=== PATIENT | female | born 1980 | race Caucasian/White ===

== ENCOUNTER → 2016-09-10 | Outpatient (CLI) | payer OTHER ==
[~2016-09-10] MED LIST: ALLEGRA60 MG PO; BACTRIM DS TABL1 TA1 PO; EXCEDRIN EXTRA1 TAB; EXCEDRIN GELTAB1 TA1 PO; FIORICET1 TAB PO; FLEXERIL10 MG PO; IBUPROFEN PO; IBUPROFEN800 MG PO; LOC PO; LORTAB 7.5-3251 EACH PO; MEDROL4 MG/DOSE- PO; NAPROXEN PO; NO MEDICATIONS; NORCO 7.5-3251 EACH PO; PERCOCET PO; PREDNISONE PO; ROBAXIN 750750 MG PO; TYLENOL #3 PO; VICODIN 5/1 TAB 5/50 PO; VICODIN 5/500 T1 TAB PO; VOLTAREN75 MG PO; ZANAFLEX4 M1 PO
--- NOTE | ~2016-09-10 | MR113 ---
[facility] A Service of [facility] RADIOLOGY TEXT RESULTS PATIENT: ZHAO ARENAS LOCATION: [facility] : [birth year] UNIT #: [id number] AGE: [address]: Stephon Alves MD SEX: F ORDER DR: [id number] [place] [id number] O MR#: [id number] Acc #: [id number] NAME: ZHAO ARENAS : 1980 SEX: F STUDY DATE/TIME: 09/10/2016 14:09 UNIT: [facility] ROOM: STUDY DESCRIPTION: MR Lumbar Wo Contrast Attending Physician: Stephon Alves M.D. Referring Physician: Stephon Alves M.D. Ordering Physician: Stephon Alves M.D. Primary Care Physician: Primary Care Physician No MRI CENTER REPORT This report is preliminary unless electronic signature is present. EXAM MRI of the lumbar spine without HISTORY Herniated lumbar disc. No known injury or surgery. Chronic low back pain for several years worse in the past 6-7 months, worse to the left side into the left hip and buttock area. COMMENTS MRI of the lumbar spine performed without contrast using routine 1.5T wide-bore imaging technique. COMPARISON: Plain films 12/31/2015. Sagittal alignment is normal. There is loss of intervertebral disc height at L5-S1 with mixed marrow endplate degenerative changes, dissociation and endplate spondylosis. Hxpqwcat-tk-jlypwa loss of intervertebral disc height at this level. Conus medullaris terminates at L1 level and is normal. L1-2, no significant abnormality. At L2-3, minor concentric disc bulge. No canal or foraminal impingement. L3-4, no significant abnormality. At L4-5, minor posterior disc bulge. No canal or foraminal impingement. L5-S1, findings as noted above with concentric disc bulge and endplate spondylosis. There is superimposed extrusion central extending to the left and right of midline extending caudad from the disc but remaining [facility] A Service [facility] RADIOLOGY TEXT RESULTS PATIENT: ZHAO ARENAS LOCATION: [facility] : [birth year] UNIT #: [id number] AGE: [address]: Stephon Alves MD SEX: F ORDER DR: contiguous with it. Extrusion is small and there is mild effacement of the anterior thecal sac. There is mild mass effect on the bilateral lateral recesses expected location of the S1 roots. Disc material also extends into the foramina and there is glgt-fa-zrtiaejs left and milder right-side foraminal narrowing. IMPRESSION 1. Lumbar degenerative changes are detailed above most significant appearing radiographically at L5-S1. See above. Dictated by... Alice Weller M.D. THIS IS AN ELECTRONICALLY VERIFIED REPORT Alice Weller M.D. at 09/13/2016 3:25 PM DILIP/cesario TD: 09/13/2016 11:54 JOB #: [id number] MRI CENTER REPORT Page 1 of 1
== END | disposition home or self-care (01) ==
LOC: SMRI 13:08
DX: M51.26 Other intervertebral disc displacement, lumbar region (principal); M47.897 Other spondylosis, lumbosacral region
CPT/HCPCS: 72148

== ENCOUNTER 2016-10-05 23:50 | Emergency (ER) | payer OTHER ==
--- NOTE | ~2016-10-05 | CT16 ---
[facility] A Service [facility] RADIOLOGY TEXT RESULTS PATIENT: ZHAO ARENAS LOCATION: SED : 81 UNIT #: [id number] AGE: [address]: Stephon Moreland MD SEX: F ORDER DR: [id number] [place] [id number] E MR#: [id number] Acc #: [id number] NAME: ZHAO ARENAS : 1980 SEX: F STUDY DATE/TIME: 10/06/2016 1:37 UNIT: SED ROOM: STUDY DESCRIPTION: CT Angio Chest for PE Attending Physician: Stephon Moreland M.D. Ordering Physician: Stephon Moreland M.D. Primary Care Physician: No Primary Care Physician MEDICAL IMAGING REPORT This report is preliminary unless electronic signature is present. EXAM CTA chest PE protocol INDICATION Elevated D-dimer level. Palpitations, shortness of air beginning today. PROCEDURE Contrast-enhanced CTA of the chest attention on opacification of the pulmonary arteries. Coronal 3D MIP sagittal reformatted images reconstructed and submitted. This CT exam was performed with one or more of the following radiation dose reduction techniques: automatic exposure control, adjustment of mA and/or kV according to patient size, and iterative reconstruction. COMPARISON None. FINDINGS No evidence for pulmonary embolus or acute aortic injury. No adenopathy. Nodularity of the inferior thyroid gland. No acute findings in the included upper abdomen. Lungs are clear. No aggressive appearing bone lesion. IMPRESSION 1. No acute findings. No evidence for pulmonary embolus. 2. Nodularity along the inferior aspect of the thyroid gland. Thyroid would be better evaluated with a nonemergent thyroid ultrasound. Dictated by... Sriram Garcia M.D. [facility] A Service [facility] RADIOLOGY TEXT RESULTS PATIENT: ZHAO ARENAS LOCATION: SED : 81 UNIT #: [id number] AGE: [address]: Stephon Moreland MD SEX: F ORDER DR: THIS IS AN ELECTRONICALLY VERIFIED REPORT Sriram Garcia M.D. at 10/06/2016 10:09 PM BEVERLY/macie TD: 10/06/2016 09:43 JOB #: [id number] MEDICAL IMAGING REPORT Page 1 of 1
--- NOTE | ~2016-10-05 | EKG ---
PATIENT: ZHAO ARENAS UNIT #: [id number] Ventricular Rate: 97 BPM Atrial Rate: 97 BPM P-R Interval: 126 ms QRS Duration: 94 ms Q-T Interval: 366 ms QTC Calculation(Bezet): 464 ms P [place]: 69 degrees Calculated R [place]: 46 degrees Calculated T [place]: -37 degrees Diagnosis Line: Normal sinus rhythm Diagnosis Line: ST and T wave abnormality, consider anterolateral Diagnosis Line: ischemia Diagnosis Line: Prolonged QT Diagnosis Line: Abnormal ECG Diagnosis Line: No previous ECGs available Diagnosis Line: Confirmed by JULES MILAN MD ([id number]) on Diagnosis Line: 10/06/2016 2:49:02 PM INTERPRETING MD: BJORN PRESSLEY
[~2016-10-05 23:50] MED LIST changes: -LOC PO; -LORTAB 7.5-3251 EACH PO
[2016-10-06 00:48] LABS: BASOPHIL% 0.2 % (0-2.5); EOSINOPHIL# 0.2 X10e3 (0-0.7); EOSINOPHIL% 3.3 % (0.0-7.0); HEMATOCRIT 36.6 % (35.0-45.0); HEMOGLOBIN 12.4 gm/dL (12.0-16.0); MEAN CELL VOLUME 91.8 FL (83-96); MEAN CORPUSCULAR HEMOGLOBIN 31.1 PG (28-34); MEAN CORPUSCULAR HGB CONC 33.9 g/dL (30-36); MEAN PLATELET VOLUME 7.9 FL (6.5-11.5); MONOCYTE# 0.6 X10e3 (0-1.0); MONOCYTE% 9.1 % (3.0-12.0); NEUTROPHIL# 3.9 X10e3 (1.5-7.1); NEUTROPHIL% 58.4 % (40-75); PLATELET COUNT 222 X10e3 (140-420); RED BLOOD COUNT 3.99 X10e (3.90-5.30); RED CELL DISTRIBUTION WIDTH 13.5 % (11.0-15.5); WHITE BLOOD COUNT 6.8 X10e3 (4.0-10.5)
[2016-10-06 00:50] LABS: DIFF IND NO
[2016-10-06 00:56] LABS: POC - CKMB <1.0 ng/mL (0.0-7.9)
[2016-10-06 00:57] LABS: POC - TROPONIN <0.05 ng/mL (<=0.05)
[2016-10-06 00:59] LABS: BUN/CREATININE RATIO 22.85; CALCIUM SERUM 8.7 mg/dL (8.4-10.2); CREATININE SERUM 0.7 mg/dL (0.6-1.4); GLOM FILT RATE Estimated 112.3 mL/min (>60); POTASSIUM 3.3 mmol/L (3.5-5.1)
== END 2016-10-06 02:37 | disposition home or self-care (01) ==
LOC: SED 23:50
PROVIDERS: Emergency Medicine
DX: R07.89 Other chest pain (principal); F41.9 Anxiety disorder, unspecified; E87.6 Hypokalemia; Z90.49 Acquired absence of other specified parts of digestive tract; Z90.710 Acquired absence of both cervix and uterus; F17.200 Nicotine dependence, unspecified, uncomplicated
CPT/HCPCS: 36415; 71275; 80048; 82553; 83735; 84443; 84484; 85025; 85379; 93005; 99284; Q9967

== ENCOUNTER → 2016-10-12 | Outpatient (CLI) | payer OTHER ==
[~2016-10-12] MED LIST changes: +LOC PO; +LORTAB 7.5-3251 EACH PO
[2016-10-12 13:14] LABS: BUN/CREATININE RATIO 25.71; CALCIUM SERUM 8.7 mg/dL (8.4-10.2); CREATININE SERUM 0.7 mg/dL (0.6-1.4); GLOM FILT RATE Estimated 112.3 mL/min (>60); POTASSIUM 3.7 mmol/L (3.5-5.1)
== END | disposition home or self-care (01) ==
LOC: SLAB 12:36
PROVIDERS: Internal Medicine Interventional Cardiology
DX: E04.1 Nontoxic single thyroid nodule (principal); R07.89 Other chest pain; R06.02 Shortness of breath
CPT/HCPCS: 36415; 80048; 84443

== ENCOUNTER → 2016-11-22 | Outpatient (CLI) | payer OTHER ==
--- NOTE | ~2016-11-22 | TH ---
Unit #: [id number] #: [id number] Patient: ZHAO ARENAS [id number] [address] [address] [id number] O MR#: [id number] NAME: ZHAO ARENAS : 1980 SEX: F STUDY DATE/TIME: 11/22/2016 UNIT: [facility] ROOM: STUDY DESCRIPTION: Nuclear stress test Attending Physician: Tim Collado M.D. Referring Physician: Tim Collado M.D. Primary Care Physician: Al Short M.D. CARDIOLOGY REPORT PROCEDURE PERFORMED Nuclear and ECG portions of stress test. INDICATION Chest discomfort. SUMMARY The patient underwent nuclear stress test. Received a resting dose of 12 mCi and a stress dose of 35.7 mCi. On gated imaging the patient appears to have normal wall motion with a preserved ejection fraction. The patient's LVEF is 63%. On perfusion imaging comparing rest and stress imaging, there appears to be no reversible perfusion defects. CONCLUSIONS 1. No obvious ischemia. 2. Preserved ejection fraction. 3. ECG portion dictated below. ECG SUMMARY The patient underwent treadmill nuclear Cardiolite stress test. The patient exercised on Yohan protocol for 10 minutes and 34 seconds, achieving a work level METS of 12.6. The patient's resting ECG shows normal sinus rhythm with normal ST segments. The patient's stress ECG shows sinus tachycardia with upsloping ST segment depression in inferolateral leads. There is no ventricular ectopy noted. There is no supraventricular ectopy noted. There are no pauses noted. The patient's resting blood pressure is 129/85 mmHg, which increased to a maximum of 145/84 mmHg. STRESS ECG CONCLUSION 1. Abnormal ECG portion of the Cardiolite stress test concerning for ischemia. 2. Good exercise tolerance. 3. Normal blood pressure and heart rate response to exercise. 4. Low risk study. 5. Nuclear portion dictated above. 6. Clinical correlation needed. Unit #: [id number] #: [id number] Patient: ZHAO ARENAS Dictated by... Tim Collado M.D. OK/db TD: 11/22/2016 15:27 JOB #: [id number] CARDIOLOGY REPORT Page 1 of 1 X TIM COLLADO MD CARDIOLOGY REPORT
== END | disposition home or self-care (01) ==
LOC: CNUC 08:57
DX: R07.89 Other chest pain (principal); R06.02 Shortness of breath; R79.81 Abnormal blood-gas level; R94.39 Abnormal result of other cardiovascular function study; I36.1 Nonrheumatic tricuspid (valve) insufficiency
CPT/HCPCS: 78452; 93017; 93306; A9500

== ENCOUNTER 2016-11-24 12:16 | Observation (INO) | payer OTHER ==
--- NOTE | ~2016-11-24 | CO ---
Unit #: [id number] #: [id number] Patient: ZHAO ARENAS [id number] [address] [place], [place] [address] [id number] I MR#: [id number] NAME: ZHAO ARENAS ROOM: 230 Age: 36 Sex: F Admission Date: 11/24/2016 : 1980 Attending Physician: Boo Lau M.D. Primary Care Physician: Al Short M.D. Consultation Date: 11/24/2016 CONSULTATION REPORT HISTORY OF PRESENT ILLNESS Ms. Arenas is a healthy 36-year-old female who woke up this morning with some nonspecific periumbilical abdominal pain and low-grade nausea. She has also had anorexia. Over the course of the morning, the pain became localized to the right lower quadrant and increased in intensity, and she went to the emergency room. She denied any fever, chills, diarrhea, vomiting, or dysuria. CT scan in the emergency room was consistent with acute appendicitis. PAST MEDICAL HISTORY 1. 4, para 4. 2. Frequent migraine headaches. She has not had any evaluation of her headaches. PAST SURGICAL HISTORY 1. section. 2. Uterine ablation followed by hysterectomy. 3. Laparoscopic cholecystectomy. ALLERGIES No allergies to medications. IMMUNIZATIONS She had a flu vaccine. MEDICATIONS She is not currently on any prescription medications but takes pnlf-mmz-vcozqwe Excedrin for her headaches. FAMILY HISTORY Diabetes, atherosclerotic coronary artery disease, hypertension, and multiple cancers. SOCIAL HISTORY She is currently undergoing a divorce. She has four children. 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 She smokes a half a pack a day, social alcohol drinker, and denies the use of any recreational drugs. REVIEW OF SYSTEMS Otherwise unremarkable. PHYSICAL EXAMINATION VITAL SIGNS: Temperature is 97.6, pulse 65 and regular, respirations 12 Unit #: [id number] #: [id number] Patient: ZHAO ARENAS and unlabored, and blood pressure 113/74. GENERAL: Awake, alert, and oriented in all spheres. HEENT: Unremarkable. CARDIAC: Regular rate and rhythm. LUNGS: Clear. ABDOMEN: She has localized rebound tenderness in the right lower quadrant. EXTREMITIES: No edema. NEUROLOGIC: Grossly intact. No skin rash or lesions. DIAGNOSTIC STUDIES LABORATORY: Comprehensive metabolic panel is unremarkable. Amylase and lipase are normal. Urinalysis is negative for infection. Hemoglobin 13.7, white count 13,400, and platelets 246,000. IMAGING: CT scan is consistent with acute appendicitis, otherwise unremarkable. ASSESSMENT AND PLAN Acute appendicitis. I discussed laparoscopic appendectomy with the possibility of conversion to open procedure with the patient and her family. The risks, benefits, and complications were discussed. The patient understands and agrees to proceed. Dictated by... Evan Zuniga/merle TD: 11/24/2016 17:48 JOB #: [id number] CONSULTATION REPORT Page 1 of 1 X Boo Lau MD X CONSULTATION REPORT
--- NOTE | ~2016-11-24 | OR ---
Unit #: [id number] #: [id number] Patient: ZHAO ARENAS [id number] [address] [place], [place] [address] [id number] I MR#: [id number] NAME: ZHAO ARENAS ROOM: 230 Date of Procedure: 11/24/2016 Admission Date: 11/24/2016 Surgeon: Boo Lau M.D. : 1980 Attending Physician: Boo Lau M.D. Primary Care Physician: Al Short M.D. OPERATIVE REPORT PREOPERATIVE DIAGNOSIS Acute appendicitis. POSTOPERATIVE DIAGNOSIS Acute appendicitis. PROCEDURES PERFORMED Diagnostic laparoscopy and laparoscopic appendectomy. ANESTHESIA General endotracheal anesthesia. ESTIMATED BLOOD LOSS Less than 20 mL. INDICATIONS FOR PROCEDURE A 36-year-old female presented to the ER with abdominal pain that localized to right lower quadrant. CT confirmed appendicitis. DESCRIPTION OF PROCEDURE The patient was transported from the hospital room to the operating room, and after induction of general endotracheal anesthesia, a Owusu catheter was placed and she was prepped and draped in usual sterile fashion. A 5-mm supraumbilical incision was made. Veress needle was placed. Pneumoperitoneum was created. Then, a 5-mm trocar was placed. Laparoscope was introduced into peritoneal cavity under direct vision. A 5-mm suprapubic and a 12-mm infraumbilical trocars were placed. The appendix was erythematous and inflamed, but was able to be grasped and elevated. Some peritoneal reflection was sharply divided. The appendix was easily elevated. Mesoappendix was from the appendix at the base of the appendix and then, the mesoappendix was clamped, divided, and ligated using an Endo LUPE with a vascular load. There was good hemostasis. The appendix was then clamped, divided, and ligated using an Endo LUPE with a regular load as it entered into the cecum. After it was divided, the staple line was evaluated and it was intact with good hemostasis. The appendix was placed in an EndoCatch bag and brought out through the 12 mm port site. We rechecked for hemostasis. There was excellent hemostasis. Staple lines were intact. The 12 mm fascial defect was closed using a neoClose device and the closure was airtight. I then reduced the pneumoperitoneum through the 5 mm ports and once the pneumoperitoneum was reduced, removed the ports. 0.5% Marcaine with epinephrine was infiltrated at each port site to a total of 30 mL of 0.5% Unit #: [id number] #: [id number] Patient: ZHAO ARENAS Marcaine with epinephrine. The skin was closed with 4-0 Monocryl subcuticular closure and Dermabond skin adhesive. Sponges and needle counts were correct x3. The patient tolerated the procedure well and was transported to the recovery room in stable condition. Findings and postoperative instructions were discussed with her family. Dictated by... Evan Zuniga/james TD: 11/25/2016 04:59 JOB #: [id number] OPERATIVE REPORT Page 1 of 1 X Boo Lau MD PROCEDURE OPERATIVE NOTE
--- NOTE | ~2016-11-24 | DS ---
Unit #: [id number] #: [id number] Patient: ZHAO ARENAS [id number] [facility] [address]. [place], [place] [address] [id number] I MR#: [id number] NAME: ZHAO ARENAS ROOM: 230 Age: 36 Sex: F Admission Date: 11/24/2016 : 1980 Discharge Date: 11/25/2016 Attending Physician: Boo Lau M.D. Primary Care Physician: Al Short M.D. DISCHARGE SUMMARY HISTORY AND HOSPITAL COURSE Ms. Arenas is an otherwise healthy 36-year-old female, who developed abdominal pain that localized to the right lower quadrant. She went to the emergency room at [facility]. There, a CT scan confirmed appendicitis and she was transferred to [facility] where she was taken to the operating room and underwent an uncomplicated laparoscopic appendectomy. She was admitted to the floor postoperatively, and she has remained afebrile with stable vital signs. She was able to tolerate a diet last evening and she has passed flatus this morning. Her abdomen is soft to examination and she just has mark-incisional tenderness. The patient is ambulating spontaneously. Today, she will be discharged home with instructions to undergo diet and activity as tolerated. She may shower and use a laxative as needed. She was instructed not to submerge her wounds under water in a tub or pool until seen in the office. She is to call [phone] for a followup appointment in one to two weeks. Prescription for hydrocodone was left for pain control. Patient understood these instructions and will be discharged home in stable condition. Dictated by... Evan Zuniga/juan TD: 11/26/2016 11:57 JOB #: [id number] DISCHARGE SUMMARY Page 1 of 1 X Boo Lau MD X DISCHARGE SUMMARY
[~2016-11-24 12:16] MED LIST changes: -LOC PO; -LORTAB 7.5-3251 EACH PO
[2016-11-25] MEDS ORDERED: LOC PO (07:46)
[2016-11-25] MEDS ORDERED: LORTAB 7.5-3251 EACH PO (07:48)
== END 2016-11-25 13:27 | disposition home or self-care (01) ==
LOC: C2A 14:04 → CEDOF 14:04 → UNDOADMIN 14:04 → CEDOF 14:04 → C2A 15:26
PROVIDERS: Specialist
PROC: 0DTJ4ZZ Resection of Appendix, Percutaneous Endoscopic Approach (ICD-10-PCS; principal; 2016-11-24 16:00)
DX: K35.80 Unspecified acute appendicitis (principal); F17.200 Nicotine dependence, unspecified, uncomplicated; F41.9 Anxiety disorder, unspecified; Z79.899 Other long term (current) drug therapy; G43.909 Migraine, unspecified, not intractable, without status migrainosus; F41.0 Panic disorder [episodic paroxysmal anxiety]; Z90.710 Acquired absence of both cervix and uterus; Z98.890 Other specified postprocedural states; Z90.49 Acquired absence of other specified parts of digestive tract; Z82.49 Family history of ischemic heart disease and other diseases of the circulatory system; Z80.9 Family history of malignant neoplasm, unspecified
CPT/HCPCS: 88304; 96361; 96374; 96375; 96376; G0378; J0330; J1100; J1885; J2543; J2710; J3010

== ENCOUNTER → 2016-11-24 | Emergency (ER) | payer OTHER ==
[~2016-11-24] VITALS: Ht 172.7 cm; Wt 63.5 kg
--- NOTE | ~2016-11-24 | CT4 ---
[facility] A Service of [facility] RADIOLOGY TEXT RESULTS PATIENT: ZHAO ARENAS LOCATION: SED : [birth year] UNIT #: [id number] AGE: [address]: Amaury Lara MD SEX: F ORDER DR: [id number] [address] [address] [id number] E MR#: [id number] Acc #: [id number] NAME: ZHAO ARENAS : 1980 SEX: F STUDY DATE/TIME: 11/24/2016 09:20 UNIT: SED ROOM: STUDY DESCRIPTION: CT Abd and Pelv Wo Cont Attending Physician: Amaury Lara M.D. Ordering Physician: Amaury Lara M.D. Primary Care Physician: Al Short M.D. MEDICAL IMAGING REPORT This report is preliminary unless electronic signature is present. EXAM CT abdomen and pelvis without contrast, 11/24/2016, 0920 hours. CLINICAL HISTORY 36-year-old woman with new onset right lower quadrant pain at for this morning with nausea. COMPARISON CT abdomen, 02/24/2009. TECHNIQUE Helical noncontrasted images were obtained from the lung bases through the pubic symphysis. Sagittal and coronal reconstructions were performed. No contrast was administered. Total exam DLP 775 mGy-cm. This CT exam was performed with one or more of the following radiation dose reduction techniques: automatic exposure control, adjustment of mA and/or kV according to patient size, and iterative reconstruction. FINDINGS Images through the lung bases are clear. There are no effusions. The distal esophagus is normal. Unopacified images of the liver, spleen, pancreas and bile ducts are normal. The gallbladder is surgically absent. There are no adrenal lesions. The kidneys demonstrate no mass, stone or obstruction. There is no ureterectasis or ureteral calculus. The bladder appears normal. There are lower pelvic phleboliths present. The stomach and small bowel are normal. The appendix is prominent, best seen on image 69, measuring 7 mm in diameter with subtle surrounding ground-glass change in the fat around the appendix suggesting acute [facility] A Service of [facility] RADIOLOGY TEXT RESULTS PATIENT: ZHAO ARENAS LOCATION: SED : [birth year] UNIT #: [id number] AGE: [address]: Amaury Lara MD SEX: F ORDER DR: inflammation. There is no fluid, appendicolith or perforation. Findings are most consistent with early acute appendicitis. The colon is unremarkable. CT pelvis demonstrate normal, small uterus. There is no adnexal mass or pelvic free fluid. There is degenerative disc disease at L5-S1 with disc height loss, spurring and vacuum phenomena. IMPRESSION The appendix is abnormally prominent with diameters 7 mm with ground-glass change in the surrounding fat suggesting acute inflammation. There is no fluid, fluid collection or perforation. Findings are most suggestive of early, acute appendicitis. STAT * RESULT Dictated by... Hafsa Murrieta M.D. THIS IS AN ELECTRONICALLY VERIFIED REPORT Hafsa Murrieta M.D. at 11/24/2016 2:30 PM ROMI/denia TD: 11/24/2016 09:48 JOB #: [id number] MEDICAL IMAGING REPORT Page 1 of 1
[2016-11-24 09:15] LABS: BASOPHIL# 0.1 X10e3 (0-0.3); BASOPHIL% 0.5 % (0-2.5); EOSINOPHIL# 0.1 X10e3 (0-0.7); EOSINOPHIL% 0.8 % (0.0-7.0); HEMATOCRIT 40.8 % (35.0-45.0); HEMOGLOBIN 13.7 gm/dL (12.0-16.0); LYMPHOCYTE% 7.4 % (17.0-45.0); MEAN CELL VOLUME 93.9 FL (83-96); MEAN CORPUSCULAR HEMOGLOBIN 31.5 PG (28-34); MEAN CORPUSCULAR HGB CONC 33.6 g/dL (30-36); MEAN PLATELET VOLUME 8.2 FL (6.5-11.5); MONOCYTE# 0.7 X10e3 (0-1.0); MONOCYTE% 5.2 % (3.0-12.0); NEUTROPHIL# 11.5 X10e3 (1.5-7.1); NEUTROPHIL% 86.1 % (40-75); PLATELET COUNT 246 X10e3 (140-420); RED BLOOD COUNT 4.34 X10e (3.90-5.30); RED CELL DISTRIBUTION WIDTH 13.7 % (11.0-15.5); WHITE BLOOD COUNT 13.4 X10e3 (4.0-10.5)
[2016-11-24 09:16] LABS: DIFF IND NO
[2016-11-24 09:38] LABS: ALBUMIN SERUM 4.6 g/dL (3.5-5.0); BILIRUBIN, DIRECT 0.1 mg/dL (0.0-0.2); BILIRUBIN,INDIRECT 0.3 mg/dL (0.0-0.9); BILIRUBIN,TOTAL 0.4 mg/dL (0.2-2.0); CALCIUM SERUM 8.8 mg/dL (8.4-10.2); CREATININE SERUM 0.6 mg/dL (0.6-1.4); GLOM FILT RATE Estimated 118.1 mL/min (>60); POTASSIUM 3.6 mmol/L (3.5-5.1); PROTEIN TOTAL SERUM 7.5 g/dL (6.0-8.3)
[2016-11-24 12:48] LABS: URINE SOURCE CLEAN CATCH
[2016-11-24 12:50] LABS: URINE APPEARANCE CLEAR; URINE BILIRUBIN NEG (NEG); URINE BLOOD TRACE-LYSED (NEG); URINE COLOR YELLOW; URINE GLUCOSE NEG (NORM); URINE KETONE NEG (NEG); URINE LEUKOCYTE ESTERASE 2+ (NEG); URINE NITRATE NEG (NEG); URINE PH 5.5 (5-8); URINE PROTEIN NEG (NEG); URINE SPECIFIC GRAVITY >=1.030 (1.003-1.035); URINE UROBILINOGEN 0.2 MG/DL (NORM)
[2016-11-24 12:53] LABS: MICRO INDICATED? YES
[2016-11-24 13:02] LABS: CULTURE INDICATED? YES; URINE BACTERIA 1+ (NEG); URINE WBC 50-100 /[HPF] (0-5)
[2016-11-24 13:03] LABS: URINE SQUAMOUS EPITHELIAL CELL FEW /[HPF]; URINE TRICHOMONAS PRESENT
== END | disposition short-term general hospital (02) ==
LOC: SED 08:42
PROVIDERS: Emergency Medicine
DX: K35.80 Unspecified acute appendicitis (principal); Z90.710 Acquired absence of both cervix and uterus
CPT/HCPCS: 36415; 74176; 80048; 80076; 81003; 82150; 83690; 85025; 87086; 96360; 99285; J1170; J2405; J2543; J2550